=== PATIENT | female | born 1990 | race African-American/Black ===

== ENCOUNTER 2024-10-17 14:46 | Inpatient (IN) | payer OTHER, SELFPAY ==
[~2024-10-17 14:46] MED LIST: Acetaminophen 500 MG TAB PO PRN; Carboprost 250 MCG/ML AMP IM PRN; Diphenoxylate HCl/Atropine Tablet PO PRN; HYDROcodone/Acetaminophen 5/325 mg Tablet PO PRN; Ibuprofen 800 MG TAB PO PRN; Lactated Ringer's 1,000 ML IV SCH; Lidocaine 1% (PF) 30 ML VIAL SC PRN; Methylergonovine 0.2 MG/ML VIAL IM PRN; Misoprostol 200 MCG TAB PR PRN; Ondansetron PF 4 MG/2 ML Vial IVP PRN; Oxytocin 30 units/NS 500 ML 500 ML IV SCH; Promethazine HCl 25 MG/ML VIAL IM PRN; Tranexamic Acid 1,000 MG/10 ML VIAL IVP PRN; fentaNYL 50 mcg/mL 1 mL Vial SLOW IVP PRN; hydrALAZINE 20 MG/ML VIAL SLOW IVP PRN
[2024-10-17] MEDS ORDERED: Methylergonovine 0.2 MG/ML VIAL IM PRN (15:14)
[2024-10-17] MEDS ORDERED: Bisacodyl 10 MG SUPP PR PRN (15:14)
[2024-10-17] MEDS ORDERED: Promethazine HCl 25 MG/ML VIAL IM PRN (15:14)
[2024-10-17] MEDS ORDERED: Oxytocin 30 units/NS 500 ML 500 ML IV SCH (15:14)
[2024-10-17] MEDS ORDERED: Milk Of Magnesia 30 ML UDCUP PO PRN (15:14)
[2024-10-17] MEDS ORDERED: Ondansetron PF 4 MG/2 ML Vial IVP PRN (15:14)
[2024-10-17] MEDS ORDERED: Boostrix 0.5 ML (Tdap) VIAL (>/=7 yrs of age) IM ONE (15:14)
[2024-10-17] MEDS ORDERED: Preparation H Ointment 28 GM TUBE PR PRN (15:14)
[2024-10-17] MEDS ORDERED: Misoprostol 200 MCG TAB VAG PRN (15:14)
[2024-10-17] MEDS ORDERED: diphenhydrAMINE 25 MG CAP PO PRN (15:14)
[2024-10-17] MEDS ORDERED: hydrALAZINE 20 MG/ML VIAL SLOW IVP PRN (15:14)
[2024-10-17] MEDS ORDERED: Lanolin Ointment 7 GM TUBE TOP PRN (15:14)
[2024-10-17 16:05] LABS: Hematocrit 30.3 % (34.9-44.5); Hemoglobin 10.5 g/dL (12.0-15.5); Mean Corpuscular HGB CONC 34.7 g/dL (32.0-36.0); Mean Corpuscular Hemoglobin 30.9 pg (27.0-33.0); Mean Corpuscular Volume 89.1 fL (81.6-98.3); Mean Platelet Volume 9.7 fL (7.4-10.4); Platelet Count 322 10x3/uL (150-450); RBC Distribution Width 13.6 % (11.5-14.5); White Blood Cell (WBC) Count 8.8 10x3/uL (3.5-10.5)
[2024-10-17 17:56] LABS: Syphilis Antibody Nonreactive (Nonreactive); Syphilis Antibody Index 0.07 S/CO (<1.00 Non-Reactive)
[2024-10-17 17:58] LABS: HBsAg Index 0.17 S/CO (0-0.99); HIV (1/2) Antibody/Antigen Non-Reactive (NonReactive); HIV 1/2 INDEX 0.09 S/CO (<1.00); Hep B Surf Ag - L&D Non-Reactive S/CO (NonReactive)
[2024-10-17 19:03] LABS: Amphetamine Detected (NotDetected); Barbiturates Screen Not Detected (NotDetected); Benzodiazepine Screen Not Detected (NotDetected); Cocaine Metabolite Screen Detected (NotDetected); Methadone Not Detected (NotDetected); Methamphetamine Detected (NotDetected); Opiate Screen Not Detected (NotDetected); Oxycodone Screen Not Detected (NotDetected); Phencyclidine (PCP) Not Detected (NotDetected); THC/Cannabinoid Screen Detected (NotDetected); Tricyclic Screen Not Detected (NotDetected)
[2024-10-17] MEDS: Docusate 100 MG CAP PO SCH (20:27)
[2024-10-17] MEDS: Ibuprofen 800 MG TAB PO SCH (20:29)
[2024-10-17] MEDS: Ferrous Sulfate 325 MG TAB PO SCH (20:32)
[2024-10-18] MEDS ORDERED: Ibuprofen 800 MG TAB ONE ×2 (06:11→14:11)
[2024-10-18] MEDS ORDERED: Prenatal Vitamin 1 TAB PO SCH (09:00)
[2024-10-18] MEDS ORDERED: Ferrous Sulfate 325 MG TAB ONE (10:11)
[2024-10-18] MEDS ORDERED: Famotidine 20 MG TAB ONE ×2 (10:11→20:32)
[2024-10-18] MEDS ORDERED: Prenatal Vitamin 1 TAB ONE (10:11)
[2024-10-18] MEDS ORDERED: metroNIDAZOLE 500 MG TAB ONE ×2 (10:11→20:32)
[2024-10-19] MEDS ORDERED: metroNIDAZOLE 500 MG TAB ONE (07:37)
[2024-10-19] MEDS ORDERED: Famotidine 20 MG TAB ONE (07:37)
[2024-10-19 20:17] LABS: Hep C IgG Ab NONREACTIVE S/CO (NonReactive); Hep C Index 0.11 S/CO (0-0.79)
[2024-10-23 12:02] LABS: Chlamydia by PCR, Vaginal Swab Not Detected (NotDetected); GC by PCR, Vaginal Swab Not Detected (NotDetected)
== END 2024-10-19 11:00 | disposition home or self-care (01) | DRG 807 ==
LOC: CSHLD/OP 14:46 → CSHLD 14:48 → CSHPED 20:05
PROVIDERS: ADMIT Obstetrics & Gynecology; ATTEND Obstetrics & Gynecology
PROC: 10E0XZZ Delivery of Products of Conception, External Approach (ICD-10-PCS; principal; 2024-10-17)
DX: O42.02 Full-term premature rupture of membranes, onset of labor within 24 hours of rupture (principal); Z37.0 Single live birth; Z3A.40 40 weeks gestation of pregnancy; O77.0 Labor and delivery complicated by meconium in amniotic fluid; O71.82 Other specified trauma to perineum and vulva
CPT/HCPCS: 36415; 80306; 85027; 86780; 86803; 86850; 86900; 86901; 87340; 87389; 87480; 87491; 87510; 87591; 87660; 87661; 88307; 99285